=== PATIENT | female | born 1965 | race Caucasian/White ===

== ENCOUNTER 2018-05-19 09:10 | Emergency (ER) | payer BC ==
[2018-05-19 09:52] VITALS: BP 123/54
--- NOTE | 2018-05-19 10:14 | UC ---
Throat Pain/Nasal Yung HPI - HPI Summary HPI Summary: cough x 3 days cough is dry, sore throat started yesterday nasal congestion, pnd, no fever, no chills, no body aches - History of Current Complaint Chief Complaint: UCRespiratory Stated Complaint: COUGH, SORE THROAT Time Seen by Provider: 05/19/18 09:53 Hx Obtained From: Patient Hx Last Menstrual Period: yrs ?: No Onset/Duration: Gradual Onset, Lasting Days - 3, Still Present Severity: Moderate Pain Intensity: 4 Cough: Nonproductive Associated Signs & Symptoms: Positive: Nasal Discharge. Negative: Dysphagia, FB Sensation, Drooling, Wheezing, Hoarseness, Sinus Discomfort, Fever, Vomiting , Rash - Allergies/Home Medications Allergies/Adverse Reactions: Allergies Allergy/AdvReac Type Severity Reaction Status Date / Time heparin Allergy Intermediate Rash Verified 05/19/18 09:42 benadryl Allergy Severe Anaphylatic Uncoded 05/19/18 09:42 Shock Home Medications: Home Medications Cyanocobalamin TAB* [Vitamin B12 TAB*] 1,000 mcg PO DAILY 05/19/18 [History Confirmed 05/19/18] Ibuprofen TAB* [Motrin TAB* 400 MG] 400 mg PO Q8H PRN 05/19/18 [History Confirmed 05/19/18] Metoprolol Succinate 150 mg PO DAILY 05/19/18 [History Confirmed 05/19/18] PMH/Surg Hx/FS Hx/Imm Hx Cardiovascular History: Hypertension - Surgical History Surgical History: Yes Surgery Procedure, Year, and Place: Left Knee Arthroscopy, 1985. , 2004 - Family History Known Family History: Positive: Hypertension - Social History Alcohol Use: Rare Substance Use Type: None Smoking Status (MU): Former Smoker Review of Systems All Other Systems Reviewed And Are Negative: Yes Constitutional: Positive: Negative Skin: Positive: Negative Eyes: Positive: Negative ENT: Positive: Sore Throat, Nasal Discharge Respiratory: Positive: Cough Cardiovascular: Positive: Negative Is Patient Immunocompromised?: No Physical Exam Triage Information Reviewed: Yes Appearance: Well-Appearing, Obese Vital Signs: Initial Vital Signs Temp 98.7 F 05/19/18 09:45 Pulse 64 05/19/18 09:45 Resp 20 05/19/18 09:45 BP 123/54 05/19/18 09:45 Pulse Ox 98 05/19/18 09:45 Vital Signs Reviewed: Yes Eyes: Positive: Conjunctiva Clear ENT: Positive: Normal ENT inspection, Hearing grossly normal, Pharynx normal Neck: Positive: Supple, Nontender, No Lymphadenopathy Respiratory: Positive: Chest non-tender, Lungs clear, Normal breath sounds Cardiovascular: Positive: RRR, No Murmur, Pulses Normal Skin Exam: Normal Throat Pain/Nasal Course/Dx - Differential Dx/Diagnosis Provider Diagnosis: URI (upper respiratory infection) Discharge - Sign-Out/Discharge Documenting (check all that apply): Patient Departure All imaging exams completed and their final reports reviewed: No Studies - Discharge Plan Condition: Stable Disposition: HOME Patient Education Materials: Upper Respiratory Infection (ED) Referrals: Cristine Donis PA [Primary Care Provider] - If Needed - Billing Disposition and Condition Condition: STABLE Disposition: Home
== END 2018-05-19 10:48 | disposition home or self-care (01) ==
LOC: UCCORT 09:10
DX: J06.9 Acute upper respiratory infection, unspecified (principal); Z88.8 Allergy status to other drugs, medicaments and biological substances; Z87.891 Personal history of nicotine dependence
CPT/HCPCS: 99211; G0463

== ENCOUNTER 2018-07-08 10:54 | Day surgery (SDC) | payer BC ==
[~2018-07-08 10:54] MED LIST: Buffered Lidocaine 1% SYRIN* 1 ML/SYRINGE INTRADERM ONE; Lactated Ringers 1000 ML Bag* 1,000 ML IV SCH
[2018-07-08] MEDS ORDERED: Rocuronium* 10 MG/ML VIAL ONE (15:23)
[2018-07-08] MEDS ORDERED: Midazolam* 1 MG/ML 2 ML VIAL (2 MG) ONE (15:23)
[2018-07-08] MEDS ORDERED: Dexamethasone IV* 4 MG/ML 1 ML (4 MG) ONE ×2 (15:23→15:25)
[2018-07-08] MEDS ORDERED: Propofol* 10 MG/ML 20 ML BTL ONE ×2 (15:23→16:15)
[2018-07-08] MEDS ORDERED: fentaNYL* 50 MCG/ML 2 ML VIAL (100 MCG VIAL) ONE (15:23)
[2018-07-08] MEDS ORDERED: Naloxone* 0.4 MG/ML 1 ML VIAL IV PRN (16:26)
[2018-07-08] MEDS ORDERED: Ondansetron INJ* 2 MG/ML VIAL IV PRN (16:26)
[2018-07-08] MEDS ORDERED: Scopolamine 1.5 mg* PATCH TRANSDERM PRN (16:26)
[2018-07-08] MEDS ORDERED: fentaNYL* 50 MCG/ML 2 ML VIAL (100 MCG VIAL) IV PRN (16:26)
[2018-07-08] MEDS ORDERED: DiMENhydriNATE IV* 50 MG/ML VIAL IV PUSH PRN (16:26)
[2018-07-08] MEDS ORDERED: Ondansetron INJ* 2 MG/ML VIAL ONE (16:39)
[2018-07-08 19:03] VITALS: BP 128/67
--- NOTE | 2018-07-08 22:05 | PRO ---
CC: Dr. Reid; Amanda Hirsch NP * DATE OF PROCEDURE: 07/08/18 [facility] PROCEDURE: Colonoscopy. REFERRING PROVIDER: Dr. Reid and Amanda Hirsch NP INDICATION: The patient is due for colon cancer screening. No family history of colon polyps or cancer. No GI symptoms. MEDICATIONS GIVEN: Medications given by Anesthesia. DESCRIPTION OF PROCEDURE: Full disclosure of risks was reviewed with the patient as detailed on the consent form. The patient was placed in the left lateral decubitus position and monitored with continuous pulse oximetry, capnography, interval blood pressure monitoring, and direct observation. After anorectal examination was performed, the adult colonoscope was inserted into the rectum and slowly advanced to the level of the terminal ileum. Complete views of the cecum were obtained including the medial wall between the IC valve and the appendiceal orifice. Photodocumentation of landmarks obtained. Quality of the prep was fair to good. Careful inspection was made as the colonoscope was withdrawn. Retroflexion was performed in the rectum. Findings and interventions are described below. FINDINGS: Anorectal exam was unremarkable. Scope was inserted into the rectum and slowly advanced forward to the level of the cecum. Once in the cecum, the terminal ileal opening was appreciated. The scope was then slowly withdrawn throughout the length of the colon. In the ascending colon there was an approximately 1 cm submucosal lesion. Biopsy forceps used to probe the lesion and positive pillow sign identified. Consistent endoscopically with lipoma. There was a small polyp in the descending colon measuring 4 mm, which was removed with cold snare. In the sigmoid colon, there was a 2 to 3 mm polyp, which was removed with jumbo biopsy forceps. There was no diverticulosis appreciated. Retroflexion in the rectum revealed internal hemorrhoids and hypertrophied anal papillae. Scope was then withdrawn from the patient. The patient tolerated the procedure well and was recovered in the GI recovery area. IMPRESSION: 1. Complete colonoscopy to terminal ileum. 2. Small lipoma in ascending colon. No further work-up/management recommended. 3. Two diminutive polyps, removed as above. 4. Internal hemorrhoids and hypertrophied anal papillae. FOLLOWUP: 1. Await pathology. 2. Anticipate repeat colonoscopy in 5-10 years depending on polyp pathology. Thank you very much for this referral. [id number]/[facility] #: [id number] [facility]ITAL[facility]
--- NOTE | 2018-07-08 22:30 | PRO ---
DATE OF PROCEDURE: 07/08/18 [facility] PROCEDURE: EGD. REFERRING PROVIDER: Dr. Reid.* INDICATIONS: Pre-bariatric surgery EGD. Denies any GI symptoms. MEDICATIONS GIVEN: By Anesthesia. DESCRIPTION OF PROCEDURE: Full disclosure of the risks was reviewed with the patient as detailed on the consent form. The patient was placed in the left lateral decubitus position and monitored with continuos pulse oximetry, capnography, interval blood pressure monitoring, and direct observation. A bite block was placed between the patient's teeth. An adult gastroscope was then inserted into the patient's mouth and advanced into the stomach and into the distal duodenum. Findings and interventions are described below. FINDINGS: Esophagus was a normal tubular structure without rings or strictures. GE junction was regular and occurred at 40 cm. Scope was easily advanced into the stomach. Stomach was examined in the forward and retroflex views. There was a mild amount of retained liquid seen on initial views of the stomach. This liquid was suctioned. No erosions or ulcers noted. Gastric anatomy was normal. Biopsy was obtained from the antrum and sent for CLOtest. Scope was then advanced into the duodenum to at least the third portion. Duodenal mucosa was normal in appearance. Scope was then withdrawn from the patient. The patient was recovered to the GI recovery area. IMPRESSION: 1. Complete upper endoscopy of distal duodenum. 2. Mild amount of retained liquid seen in initial views of the stomach. To consider gastric emptying study to ensure the patient does not have gastroparesis, although this is likely not of clinical significance as the patient denies any GI symptoms. 3. Biopsy obtained for CLOtest. FOLLOWUP: Await pathology. Thank you very much for this referral. [id number]/[facility] #: [id number] [facility]
== END 2018-07-08 18:05 | disposition home or self-care (01) ==
LOC: OR 10:54
PROVIDERS: ATTEND Internal Medicine Gastroenterology
DX: Z12.11 Encounter for screening for malignant neoplasm of colon (principal); K63.5 Polyp of colon; Z01.818 Encounter for other preprocedural examination; E66.01 Morbid (severe) obesity due to excess calories; Z68.44 Body mass index [BMI] 60.0-69.9, adult; Z87.891 Personal history of nicotine dependence; G47.33 Obstructive sleep apnea (adult) (pediatric); I10 Essential (primary) hypertension
CPT/HCPCS: 87077; 88305; J1100; J2250; J2405; J2704; J3010

== ENCOUNTER 2018-11-11 07:17 | Inpatient (IN) | payer BC ==
[~2018-11-11 07:17] MED LIST changes: +Dexamethasone IV* 4 MG/ML 1 ML (4 MG) IV SLOW PU ONE; +Famotidine IV* 10 MG/ML 2 ML (20 mg) IV ONE
[2018-11-11] MEDS ORDERED: Buffered Lidocaine 1% SYRIN* 1 ML/SYRINGE INTRADERM ONE (07:41)
[2018-11-11] MEDS ORDERED: ceFAZolin 1 GM ADVAN(*) 1 GM ADDV.VIAL IVPB ONE (07:41)
[2018-11-11] MEDS ORDERED: ceFAZolin 2 GM PREMIX in ORs 2 GM/50 ML BAG ONE (07:41)
[2018-11-11] MEDS ORDERED: Dexamethasone IV* 4 MG/ML 1 ML (4 MG) ONE (07:41)
[2018-11-11] MEDS ORDERED: Famotidine IV* 10 MG/ML 2 ML (20 mg) ONE (07:41)
[2018-11-11] MEDS ORDERED: Ketorolac INJ* 30 MG/ML 1 ML VIAL ONE (08:28)
[2018-11-11] MEDS ORDERED: Propofol* 10 MG/ML 20 ML BTL ONE (08:28)
[2018-11-11] MEDS ORDERED: fentaNYL* 50 MCG/ML 5 ML VIAL (250 MCG VIAL) ONE (08:28)
[2018-11-11] MEDS ORDERED: Midazolam* 1 MG/ML 5 ML VIAL (5 MG) ONE (08:28)
[2018-11-11] MEDS ORDERED: Rocuronium* 10 MG/ML VIAL ONE ×2 (08:28→11:25)
[2018-11-11] MEDS ORDERED: Ondansetron INJ* 2 MG/ML VIAL ONE (08:28)
[2018-11-11] MEDS ORDERED: Lidocaine 2% PF * 5 ML VIAL ONE (08:28)
[2018-11-11] MEDS ORDERED: Methylene Blue 0.5 %* 50 MG/10 ML AMP IV ONE (09:10)
[2018-11-11] MEDS ORDERED: Bupivacaine 0.25% EPI 200,000* 30 ML SDV ONE (09:10)
[2018-11-11] MEDS ORDERED: Sugammadex * 200 MG/2 ML VIAL IV PUSH ONE (09:22)
[2018-11-11] MEDS ORDERED: Naloxone* 0.4 MG/ML 1 ML VIAL IV PRN (10:30)
[2018-11-11] MEDS ORDERED: HYDROmorphone INJ1* 1 MG/ML SYRINGE IV PRN (10:30)
[2018-11-11] MEDS ORDERED: Scopolamine 1.5 mg* PATCH TRANSDERM PRN (10:30)
[2018-11-11] MEDS ORDERED: Ondansetron INJ* 2 MG/ML VIAL IV PRN ×2 (10:30→13:49)
[2018-11-11] MEDS ORDERED: fentaNYL* 50 MCG/ML 2 ML VIAL (100 MCG VIAL) ONE ×2 (11:06→14:03)
--- NOTE | 2018-11-11 13:48 | BRIEFOPN ---
Brief Operative/Procedure Note - Operation Details Pre-Op Diagnosis: morbid obesity and cholelithiasis Post-Op Diagnosis: same; also umbilical hernia Procedures: Laparoscopic cholecystectomy, nils en y gastric bypass, repair umbilical hernia Surgeon(s)/Proceduralists: Miguelangel. Assist: CHANCE Suarez Anesthesia: GET Estimated Blood Loss: 100 ml; IVF 1800 ml RL Findings: as above Specimen(s)/Culture(s) Description: gallbladder Complications: none
[2018-11-11] MEDS ORDERED: HYDROcodone/ACET. 7.5/325 LIQ* 15 ML UDC PO PRN (13:49)
[2018-11-11] MEDS ORDERED: diPHENhydraMINE IV* 50 MG/ML 1 ml VIAL (BENADRYL) SLOW PUSH PRN (13:49)
[2018-11-11] MEDS ORDERED: HYDROmorphone INJ* 0.5 MG/0.5 ML SYRINGE IV SLOW PU PRN (13:49)
[2018-11-11] MEDS ORDERED: Acetaminophen ADULT LIQ* 650 MG/20.3 ML UDC PO PRN (13:49)
[2018-11-11] MEDS ORDERED: HYDROmorphone INJ1* 1 MG/ML SYRINGE IV SLOW PU PRN (13:49)
[2018-11-11] MEDS: fentaNYL* 50 MCG/ML 2 ML VIAL (100 MCG VIAL) IV PRN ×2 (14:03→14:09)
[2018-11-11] MEDS: Lactated Ringers 1000 ML Bag* 1,000 ML IV SCH ×2 (15:03→21:38)
[2018-11-11] MEDS: Ketorolac INJ* 30 MG/ML 1 ML VIAL IV SCH (16:55)
[2018-11-11] MEDS: Metoprolol Tartrate IV* 1 MG/ML 5 ML VIAL IV SCH (16:55)
[2018-11-11] MEDS: Famotidine IV* 10 MG/ML 2 ML (20 mg) IV SLOW PU SCH (21:34)
[2018-11-11] MEDS ORDERED: Heparin VIAL(*) 5000 UNITS/ML VIAL (FIVE THOUSAND) SUBCUT SCH (22:00)
[2018-11-12] MEDS: Metoprolol Tartrate IV* 1 MG/ML 5 ML VIAL IV SCH ×5 (00:16→23:17)
[2018-11-12] MEDS: Ketorolac INJ* 30 MG/ML 1 ML VIAL IV SCH ×5 (00:20→23:18)
[2018-11-12] MEDS: Lactated Ringers 1000 ML Bag* 1,000 ML IV SCH ×2 (04:16→10:43)
[2018-11-12 06:56] LABS: ABS Lymphocytes 1.9 10^3/ul (1.0-4.8); ABS Monocytes 0.7 10^3/ul (0-0.8); ABS Neutrophils 11.3 10^3/ul (1.5-7.7); Eosinophil % 0.1 %; Hematocrit 40 % (35-47); Hemoglobin 13.8 g/dL (12.0-16.0); Lymphocyte % 13.4 %; Mean Corpuscular HGB Conc 35 g/dL (31-36); Mean Corpuscular Hemoglobin 30 pg (27-31); Mean Corpuscular Volume 85 fL (80-97); Nucleated Red Blood Cells % 0.1; Platelet Count 233 10^3/uL (150-450); Red Blood Count 4.65 10^6 /uL (3.70-4.87); Red Cell Distribution Width 14 % (10-15)
[2018-11-12 07:11] LABS: Albumin 4.1 g/dL (3.2-5.2); Albumin/Globulin Ratio 1.8 (1-3); Calcium 9.6 mg/dL (8.6-10.3); EGFR African American 85.3 (>60); EGFR Non-African American 70.5 (>60); Globulin 2.3 g/dL (2-4); Potassium 4.4 mmol/L (3.5-5.0); Total Bilirubin 0.9 mg/dL (0.2-1.0); Total Protein 6.4 g/dL (6.4-8.9)
--- NOTE | 2018-11-12 09:22 | PN ---
Progress Note - Progress Note Date of Service: 11/12/18 SOAP: Subjective: Pt seen and examined. some abdo pain, no nausea; ambulating Objective: Temp Pulse Resp BP Pulse Ox 98.8 F 78 18 142/50 96 11/12/18 08:41 11/12/18 08:41 11/12/18 08:41 11/12/18 08:41 11/12/18 08:41 a and o x3, nad lungs cta abdo: soft/ incisional tenderness dressing intact ext wnl labs noted Assessment: POD 1 rygb, cesar, umbo hernia repair Plan: OOB UGI today possible d/c home tomorrow DVT proph
[2018-11-12] MEDS: Famotidine IV* 10 MG/ML 2 ML (20 mg) IV SLOW PU SCH ×2 (10:39→21:18)
[2018-11-12] MEDS: Rivaroxaban TAB(*) 10 MG PO SCH ×2 (12:49→14:20)
[2018-11-12] MEDS: D5W 1/2 NS KCl 20 Meq 1000 ML* 1,000 ML IV SCH ×2 (14:20→22:49)
--- NOTE | 2018-11-12 16:54 | OP ---
CC: [facility]; Primary Care Doctor; Dr. Shirley Stockton; Dr. Claus Shah * DATE OF OPERATION: 11/12/18 - ROOM #351 DATE OF : 69 SURGEON: Claus Means MD. DISCHARGING MACHINE OPERATOR: CHANCE Weeks. ANESTHESIOLOGIST: Dr. Reese. ANESTHESIA: General. PRE-OP DIAGNOSES: 1. Clinically severe obesity 2. Cholelithiasis. POST-OP DIAGNOSES: 1. Clinically severe obesity 2. Cholelithiasis. 3. Umbilical hernia. OPERATIVE PROCEDURE: 1. Laparoscopic cholecystectomy. 2. Carlos-en-Y gastric bypass. 3. Umbilical hernia repair. ESTIMATED BLOOD LOSS: 100 cc. IV FLUIDS: 1800 cc of crystalloid fluid given. SPECIMEN: Gallbladder. DRAINS: None. DESCRIPTION OF PROCEDURE: The patient was identified in the preoperative area. She was marked, consent was signed. She was taken to the operating room and placed on the operating table in a supine position. Preoperative antibiotics were given. Sequential devices were placed on bilateral lower extremities. General anesthesia was induced and the patient's abdomen was prepped and draped in standard surgical fashion and a time-out was performed. Folds of the umbilicus were elevated anteriorly and a Veress needle was inserted into the abdominal cavity, which was then allowed to insufflate to a pressure of 15 mmHg. The patient tolerated the insufflation well. [place] between the xiphoid and umbilicus, a 12 mm optical trocar was inserted. The Veress needle was removed and then review of the abdomen took place. Large gallbladder was identified and we took to removing this by placing an additional 12 mm in the right upper quadrant and a 5 mm in the right lateral site and a 5 mm in the subxiphoid area. The table was repositioned and the fundus of the gallbladder was elevated anteriorly. Both blunt and sharp dissection was needed to free off the adhesions to the body of the gallbladder until we could see the infundibular region. The common bile duct was identified via critical view. Liver was quite sizeable and made some of the dissection difficult. We took the peritoneum off the medial aspect of the gallbladder and promptly got into the gallbladder. Bile was forthcoming, but no stones at this point. We then took the peritoneum off the medial aspect of the gallbladder. We isolated the cystic duct and this was doubly clipped and ligated and we isolated the cystic artery, which was also doubly clipped and ligated. The gallbladder was removed from the liver bed and placed in the endoscopic retrieval bag and placed above the liver. Oozing at the liver bed was controlled with the cautery and this was where we had much of our blood loss for the procedure. Review of the cystic duct stump and the cystic artery stump showed no bleeding or bile. We turned our attention towards the remainder of the procedure. Additional trocars were then placed in the following position: A 12 mm and a 5 mm in the left upper quadrant. The patient was placed in a steep reverse Trendelenburg and the 5 mm subxiphoid trocar was removed and a Isaak retractor inserted and the liver retracted anteriorly into the right. This exposed the gastroesophageal fat pad, which was grasped and retracted towards right lower quadrant and blunt and sharp dissection was carried out to identify the angle of His at this site and clear off of the tissue overlying the left crura. Next, a retrogastric tunnel was made at the third crossing vessel on the lesser curvature, 45 mm barlow MANFRED stapling device was fired across this and we completed the pouch with additional 60 mm barlow MANFRED stapling devices. We fired the last two over a 32-Lithuanian OG tube that had been placed by anesthesiologist. The pouch appeared appropriately sized. We next identified the transverse colon , large omentum, with some of it coming through a small umbilical hernia was identified. This was reduced. Once the omentum was reduced from this hernia, we saw about a 1 cm umbilical hernia. This allowed us to reflect the omentum cephalad and with sizeable omentum, I made a decision to split this with LigaSure device starting right at the mid transverse colon. Next, the ligament of Treitz was identified. We counted off approximately 65 cm from the ligament of Treitz and in the appropriate orientation, brought up an omega loop and sutured it to the stomach pouch. We next made a gastro- jejunostomy with 30 mm barlow MANFRED stapling device and oversew the common defect with 3-0 PDS suture. The 32-Lithuanian OG tube was easily placed through the anastomosis. Next, the bowel was transected at the anjel of the omega loop making sure to stay away from the anastomosis leaving about a 1 cm cuff. We then tested the anastomosis in methylene blue dye test and this was negative. The 32-Lithuanian OG tube was then removed and then we turned our attention to the Carlos limb. Approximately 85 cm was counted off of Carlos limb and a jejunojejunostomy was created in the appropriate orientation with a 60 mm barlow MANFRED stapling device. The common defect was sewn over with 2-0 silk sutures and the mesenteric defect was similarly closed. Review of the abdomen showed no bleeding. Gauze was removed. We still had the gallbladder in place. Isaak retractor was removed and the liver fell back on top of the stomach pouch. Next, we turned our attention to the umbilicus and 0-Vicryl suture was utilized in a simple fashion to reapproximate the umbilical hernia defect. Next, we removed the gallbladder in an endoscopic retrieval bag through the periumbilical 12-mm port site. We did have to dilate this up minimally to get it out. We then allowed the abdomen to collapse. Trocars removed under direct vision and all skin incisions were reapproximated with 4-0 Monocryl subcuticular sutures followed by Steri-Strips and sterile dressing. The patient tolerated the procedure well, was woken up in the OR and transferred to the PACU in stable condition. [id number]/[facility] #: [id number] BEATRICE
[2018-11-13] MEDS: Ketorolac INJ* 30 MG/ML 1 ML VIAL IV SCH ×2 (05:39→12:21)
[2018-11-13] MEDS: Metoprolol Tartrate IV* 1 MG/ML 5 ML VIAL IV SCH ×2 (05:39→12:22)
[2018-11-13] MEDS: D5W 1/2 NS KCl 20 Meq 1000 ML* 1,000 ML IV SCH (07:22)
[2018-11-13] MEDS: Rivaroxaban TAB(*) 10 MG PO SCH (09:32)
[2018-11-13] MEDS: Famotidine IV* 10 MG/ML 2 ML (20 mg) IV SLOW PU SCH (09:32)
--- NOTE | 2018-11-13 10:43 | DS ---
CC: [facility]; Shirley Stockton MD ; Primary Care Doctor; Dr. Claus Shah * DISCHARGE SUMMARY: DATE OF ADMISSION: 11/11/18 DATE OF DISCHARGE: 11/13/18 HISTORY: Ms. Zheng is a 53-year-old female admitted on the same day of the surgery with a diagnosis of clinically severe obesity and cholelithiasis and underwent surgical intervention including laparoscopic gastric bypass, cholecystectomy, and umbilical hernia repair. Postoperative course is uneventful. By postoperative day 1, the patient was tolerating a liquid diet. By postoperative day 2, the patient was ready for discharge. PHYSICAL EXAMINATION: Performed on the day of discharge; the patient did have a recent temperature of 100.7. That promptly went down to a normalized 98 .6. She had been afebrile throughout, otherwise. Alert and oriented x3, in no apparent distress. Head, Ears, Nose, Eyes, and Throat: Normocephalic and atraumatic. Sclerae anicteric. Lungs: Clear to auscultation bilaterally. Abdomen: Soft, obese, and nontender, except at the umbilicus. Dressings removed, Steri-Strips in place, no erythema. Extremities: Within normal limits. IMPRESSION AND PLAN: She is postop day 2 from Carlos-en-Y gastric bypass. Plan for discharge home. Follow up closely next Friday with me. She will be discharged home in stable condition and she will resume her metoprolol, but we will hold her Avapro and her hydrochlorothiazide as well as her aspirin. This has been discussed with the patient, who understands the plan, and we will also discontinue her Xarelto. Her Xarelto was only for the perioperative period while hospitalized. It has been discussed with the patient. She will go home on a routine bariatric diet with close followup next week. [id number]/[facility] #: [id number] MTDD
[2018-11-13 11:50] VITALS: BP 146/77
== END 2018-11-13 13:00 | disposition home or self-care (01) | DRG 403 ==
LOC: AA 07:17 → SSU 16:23
PROVIDERS: ADMIT Surgery; ATTEND Surgery
PROC: 0WQF4ZZ Repair Abdominal Wall, Percutaneous Endoscopic Approach (ICD-10-PCS; 2018-11-11)
PROC: 0D164ZA Bypass Stomach to Jejunum, Percutaneous Endoscopic Approach (ICD-10-PCS; principal; 2018-11-11 09:30)
PROC: 0FT44ZZ Resection of Gallbladder, Percutaneous Endoscopic Approach (ICD-10-PCS; 2018-11-11 09:30)
DX: E66.01 Morbid (severe) obesity due to excess calories (principal); Z68.44 Body mass index [BMI] 60.0-69.9, adult; G47.33 Obstructive sleep apnea (adult) (pediatric); I10 Essential (primary) hypertension; E53.8 Deficiency of other specified B group vitamins; K80.20 Calculus of gallbladder without cholecystitis without obstruction; K42.9 Umbilical hernia without obstruction or gangrene; F17.201 Nicotine dependence, unspecified, in remission; Z88.8 Allergy status to other drugs, medicaments and biological substances; Z88.4 Allergy status to anesthetic agent; Z82.49 Family history of ischemic heart disease and other diseases of the circulatory system; Z80.1 Family history of malignant neoplasm of trachea, bronchus and lung; Z84.0 Family history of diseases of the skin and subcutaneous tissue; Z72.89 Other problems related to lifestyle; Z81.2 Family history of tobacco abuse and dependence; Z79.82 Long term (current) use of aspirin
CPT/HCPCS: 36415; 43644; 47562; 74246; 80053; 85025; 88304; A9270-GY; C1776; J0690; J1100; J1170; J1885; J2250; J2405; J2704; J3010; J3490